=== PATIENT | female | born 1965 | race Caucasian/White ===

== ENCOUNTER 2018-08-21 18:07 | Emergency (ER) | payer OTHER ==
[2018-08-21] MEDS: FAMOTIDINE 20 MG TAB PO (21:00)
[2018-08-21] MEDS: DIPHENHYDRAMINE 50 MG INJ IM (21:00)
[2018-08-21] MEDS: DEXAMETHASONE 10 MG/ML 1 ML INJ IM (21:00)
== END 2018-08-21 21:38 | disposition home or self-care (01) ==
LOC: FTE 18:07
DX: L50.9 Urticaria, unspecified (principal)
CPT/HCPCS: 96372; 99284-25